=== PATIENT | male | born 1970 | race Caucasian/White ===

== ENCOUNTER 2018-07-10 16:01 | Inpatient (IN) | payer OTHER ==
[~2018-07-10] VITALS: Ht 177.8 cm; Wt 120.2 kg
[~2018-07-10 16:01] MED LIST changes: -ATOR10 PO; -Aspirin EC81 MG PO; -Azor 5-40 MG T1 EACH PO; -CHOL10002 PO; -INSULANPEN SC; -INVOKANA100 MG; -METF500C PO; -NAPR220 PO
[2018-07-10] MEDS ORDERED: INSULANPEN SC (18:56)
[2018-07-10] MEDS ORDERED: METF500C PO (18:57)
[2018-07-10] MEDS ORDERED: Azor 5-40 MG T1 EACH PO (18:57)
[2018-07-10] MEDS ORDERED: INVOKANA100 MG (18:58)
[2018-07-10] MEDS ORDERED: Aspirin EC81 MG PO (18:58)
[2018-07-10] MEDS ORDERED: ATOR10 PO (18:58)
[2018-07-10] MEDS ORDERED: CHOL10002 PO (20:03)
[2018-07-10] MEDS ORDERED: NAPR220 PO (20:03)
[2018-07-11 05:11] LABS: BASOPHILS ABSOLUTE AUTO 0.06 K/mm3 (0.00-0.23); BASOPHILS PERCENT AUTO 0 % (0-2); EOSINOPHILS ABSOLUTE AUTO 0.03 K/mm3 (0.00-0.68); EOSINOPHILS PERCENT AUTO 0 % (0-6); Hematocrit 42.1 % (37.0-53.0); IMMATURE GRAN ABSOLUTE AUTO 0.13 K/mm3 (0.00-0.10); IMMATURE GRAN PERCENT AUTO 1 % (0-1); LYMPHOCYTES ABSOLUTE AUTO 1.32 K/mm3 (0.84-5.20); LYMPHOCYTES PERCENT AUTO 6 % (21-46); MONOCYTES ABSOLUTE AUTO 1.62 K/mm3 (0.16-1.47); MONOCYTES PERCENT AUTO 7 % (4-13); Mean Corpuscular HGB 29.6 pg (26.0-34.0); Mean Corpuscular HGB Conc 33.3 g/dL (31.5-36.5); Mean Platelet Volume 10.9 fL (9.1-12.4); NEUTROPHILS ABSOLUTE AUTO 20.24 K/mm3 (1.96-9.15); NEUTROPHILS PERCENT AUTO 87 % (41-73); Platelet Count 305 K/mm3 (150-400); RDW Coefficient Variation 12.6 % (11.7-14.2); RDW Standard Deviation 41.1 fL (35.1-46.3); Red Blood Cell Count 4.73 M/mm3 (4.30-5.90)
[2018-07-11 05:38] LABS: Mean Corpuscular Volume 89 fL (80-100)
--- NOTE | 2018-07-11 06:26 | NUR ---
SUMMARY NO ACUTE CHANGES SINCE ADMISSION. PT IS A&O X4. INDEPENDENT IN THE ROOM AND CALLS FOR ASSISTANCE PRN. PT DENIES NAUSEA. PT REPORTS SMALL AMOUNT OF FLATUS. PAIN MEDICATED PER EMAR PRN. NS INFUSING PER ORDERS. VOIDING WNL. CALL LIGHT IN REACH. WCTM
--- NOTE | 2018-07-11 10:02 | NUR ---
Advance Directive Eduaction attempted. Upon entering the patients room, I found patient sitting in a chair and alert. I introduced myself and explained the purpose of the visit. I brought up the subject of the advance directive and talked about it's importance and the process of filing. Patient was too uncomfortable physically to stay focused on the subject and stated so. I left the advance directive with the patient and patient said that he and his would look through it.
--- NOTE | 2018-07-11 17:32 | NUR ---
T 100.8. PATIENT STATES PAIN HAS REMAINED THE SAME T/O SHIFT. IS WAS GIVEN EARLIER THIS AFTERNOON FOR ELEVATED TEMP, PATIENT USING. UP AD IVETT IN ROOM. ABLE TO SLEEP FOR AWHILE LATE THIS AFTERNOON. CONT TO MONITOR.
[2018-07-12 04:38] LABS: BASOPHILS ABSOLUTE AUTO 0.05 K/mm3 (0.00-0.23); BASOPHILS PERCENT AUTO 0 % (0-2); EOSINOPHILS ABSOLUTE AUTO 0.07 K/mm3 (0.00-0.68); EOSINOPHILS PERCENT AUTO 0 % (0-6); Hematocrit 41.7 % (37.0-53.0); Hemoglobin 13.8 g/dL (13.5-17.5); IMMATURE GRAN ABSOLUTE AUTO 0.18 K/mm3 (0.00-0.10); IMMATURE GRAN PERCENT AUTO 1 % (0-1); LYMPHOCYTES ABSOLUTE AUTO 1.35 K/mm3 (0.84-5.20); LYMPHOCYTES PERCENT AUTO 6 % (21-46); MONOCYTES PERCENT AUTO 8 % (4-13); Mean Corpuscular HGB 29.3 pg (26.0-34.0); Mean Corpuscular HGB Conc 33.1 g/dL (31.5-36.5); Mean Corpuscular Volume 89 fL (80-100); Mean Platelet Volume 10.7 fL (9.1-12.4); NEUTROPHILS PERCENT AUTO 84 % (41-73); Platelet Count 295 K/mm3 (150-400); RDW Coefficient Variation 12.6 % (11.7-14.2); RDW Standard Deviation 41.2 fL (35.1-46.3); Red Blood Cell Count 4.71 M/mm3 (4.30-5.90); White Blood Cell Count 21.45 K/mm3 (4.00-11.30)
[2018-07-12 04:57] LABS: Anion Gap 10 mmol/L (6-16); Blood Urea Nitrogen 10 mg/dL (8-24); Bun/Creatinine Ratio 12.5 (12.0-20.0); CO2, Blood 21 mmol/L (21-32); Calcium, Blood 8.6 mg/dL (8.5-10.1); Chloride, Blood 107 mmol/L (98-108); Glomerular Filtration Rate >60 (60-); Glucose, Blood 172 mg/dL (70-99); Potassium, Blood 3.8 mmol/L (3.5-5.5); Sodium, Blood 138 mmol/L (136-145)
--- NOTE | 2018-07-12 05:36 | NUR ---
STATES PAIN IS MUCH BETTER AFTER SWITING TO DILUDID. HAS DENIES ANY N/V. PT IS PASSING FLATUS AND HAVING BM. STATED THE FIRST BM WAS SOLID AND NOW THEY ARE LIQUID. PT REMAINS NPO, CONT IVF AND IV ABX. PT IS INDEPENDENT IN ROOM. CALL LIGHT IN REACH.
--- NOTE | 2018-07-12 18:33 | NUR ---
SHIFT SUMMARY PATIENT STATES PAIN CONTROLLED WITH DILAUDID. NO NAUSEA. UP TO SHOWER TODAY AND UP AD IVETT IN ROOM. STATES HE PLANS ON AMBULATING IN [place] THIS EVENING. AFEBRILE THIS SHIFT. NO ACUTE CHANGES. FAMILY IN TO SEE.
--- NOTE | 2018-07-13 06:33 | NUR ---
SUMMARY NO ACUTE CHANGES FROM ASSESSMENT. PT CONTINUES TO PASS FLATUS. REPORTS "YELLOW FLAKY STOOLS". PAIN MANAGED WITH IV DILAUDID. DENIES NAUSEA. AMBULATING IN ROOM INDEPENDENTLY. CALL LIGHT IN REACH
[2018-07-13 10:06] LABS: BASOPHILS ABSOLUTE AUTO 0.06 K/mm3 (0.00-0.23); BASOPHILS PERCENT AUTO 0 % (0-2); EOSINOPHILS ABSOLUTE AUTO 0.12 K/mm3 (0.00-0.68); EOSINOPHILS PERCENT AUTO 1 % (0-6); Hematocrit 40.6 % (37.0-53.0); Hemoglobin 13.6 g/dL (13.5-17.5); IMMATURE GRAN PERCENT AUTO 1 % (0-1); LYMPHOCYTES ABSOLUTE AUTO 1.28 K/mm3 (0.84-5.20); LYMPHOCYTES PERCENT AUTO 8 % (21-46); MONOCYTES ABSOLUTE AUTO 1.65 K/mm3 (0.16-1.47); MONOCYTES PERCENT AUTO 10 % (4-13); Mean Corpuscular HGB 29.7 pg (26.0-34.0); Mean Corpuscular HGB Conc 33.5 g/dL (31.5-36.5); Mean Corpuscular Volume 89 fL (80-100); Mean Platelet Volume 10.7 fL (9.1-12.4); NEUTROPHILS ABSOLUTE AUTO 13.63 K/mm3 (1.96-9.15); NEUTROPHILS PERCENT AUTO 81 % (41-73); Platelet Count 327 K/mm3 (150-400); RDW Coefficient Variation 12.6 % (11.7-14.2); Red Blood Cell Count 4.58 M/mm3 (4.30-5.90); White Blood Cell Count 16.84 K/mm3 (4.00-11.30)
[2018-07-13 10:18] LABS: Anion Gap 9 mmol/L (6-16); Blood Urea Nitrogen 12 mg/dL (8-24); Bun/Creatinine Ratio 15.6 (12.0-20.0); CO2, Blood 23 mmol/L (21-32); Calcium, Blood 8.8 mg/dL (8.5-10.1); Chloride, Blood 107 mmol/L (98-108); Creatinine, Blood 0.77 mg/dL (0.60-1.20); Glomerular Filtration Rate >60 (60-); Glucose, Blood 172 mg/dL (70-99); Potassium, Blood 3.9 mmol/L (3.5-5.5); Sodium, Blood 139 mmol/L (136-145)
--- NOTE | 2018-07-13 16:56 | NUR ---
SHIFT SUMMARY PT HAS DONE WELL THIS SHIFT. DENIES N/V, PAIN MANAGED WITH 1MG DILAUDID ABOUT EVERY 3 HOURSDIET ADVANCED TO FULL LIQUID, PT TOLERATED WELL. PT UP WALKING AROUND IN HALLWAY X'S 3, UP TO CHAIR.
[2018-07-14 09:56] LABS: BASOPHILS ABSOLUTE AUTO 0.04 K/mm3 (0.00-0.23); BASOPHILS PERCENT AUTO 0 % (0-2); EOSINOPHILS ABSOLUTE AUTO 0.12 K/mm3 (0.00-0.68); EOSINOPHILS PERCENT AUTO 1 % (0-6); Hematocrit 40.1 % (37.0-53.0); Hemoglobin 13.7 g/dL (13.5-17.5); IMMATURE GRAN ABSOLUTE AUTO 0.08 K/mm3 (0.00-0.10); IMMATURE GRAN PERCENT AUTO 1 % (0-1); LYMPHOCYTES ABSOLUTE AUTO 0.84 K/mm3 (0.84-5.20); LYMPHOCYTES PERCENT AUTO 7 % (21-46); MONOCYTES ABSOLUTE AUTO 1.09 K/mm3 (0.16-1.47); MONOCYTES PERCENT AUTO 9 % (4-13); Mean Corpuscular HGB 29.7 pg (26.0-34.0); Mean Corpuscular HGB Conc 34.2 g/dL (31.5-36.5); Mean Corpuscular Volume 87 fL (80-100); Mean Platelet Volume 10.6 fL (9.1-12.4); NEUTROPHILS ABSOLUTE AUTO 9.64 K/mm3 (1.96-9.15); NEUTROPHILS PERCENT AUTO 82 % (41-73); Platelet Count 353 K/mm3 (150-400); RDW Coefficient Variation 12.7 % (11.7-14.2); RDW Standard Deviation 40.1 fL (35.1-46.3); Red Blood Cell Count 4.62 M/mm3 (4.30-5.90); White Blood Cell Count 11.81 K/mm3 (4.00-11.30)
[2018-07-14 10:14] LABS: Anion Gap 7 mmol/L (6-16); Blood Urea Nitrogen 11 mg/dL (8-24); CO2, Blood 24 mmol/L (21-32); Calcium, Blood 8.5 mg/dL (8.5-10.1); Chloride, Blood 105 mmol/L (98-108); Creatinine, Blood 0.78 mg/dL (0.60-1.20); Glomerular Filtration Rate >60 (60-); Glucose, Blood 343 mg/dL (70-99); Potassium, Blood 3.8 mmol/L (3.5-5.5); Sodium, Blood 136 mmol/L (136-145)
--- NOTE | 2018-07-14 18:44 | NUR ---
SHIFT SUMMARY PT HAS DONE WELL THIS SHIFT. AMBULATING INDEPENDENTLY IN HALLWAYS, TOLERATING FULL LIQUIDS, ADVANCED TO REGULAR WITH NO N/V. SALINE LOCKED. PAIN MANAGED WITH 1MG IV DILAUDID, STARTED ON 10MG ROXICODONE THIS EVENING. PLAN IS TO DC HOME TOMORROW IF PT PAIN MANAGABLE ON PO PAIN MEDICATION.
--- NOTE | 2018-07-15 06:34 | NUR ---
SHIFT SUMMARY: PT CONTINUES TO BE ON BOWEL REST; DIET ADVANCED TO FULL LIQUIDS; PT DENIES N/V. PT DOES REPORT PAIN IN LLQ, RATES IT A 6 OUT 10, CRAMPING. PT PAIN ABLE TO BE MANAGED WITH PO PAIN MEDS; 10 MG OXY Q6H PRN. PT IS PASSING FLATUS AND LOOSE BM'S. UP INDEPENDENTLY IN RM; WALKS THE HALLS. BLOOD SUGARS Q6H; SEE LABS. ADMINISTERED INSULIN PER SS. PT TO GO HOME TODAY IF PAIN CONT TO BE WELL MANAGED WITH PO PAIN MEDS. WILL CONT TO MONITOR AND PROVIDE CARE UNTIL PRESUMED BY ONCOMING RN.
[2018-07-15] MEDS ORDERED: LEVFLO500 PO (16:13)
[2018-07-15] MEDS ORDERED: DOCU100 PO (16:13)
[2018-07-15] MEDS ORDERED: METR500 PO (16:14)
[2018-07-15] MEDS ORDERED: ROXICODONE5 MG PO (16:16)
--- NOTE | 2018-07-15 16:27 | NUR ---
DISCHARGE PT EXCITED FOR D/C. DISCUSSED NEW MEDICATIONS. PT AMBULATORY, TOLERATING DIET, PASSING GAS.
== END 2018-07-15 16:53 | disposition home or self-care (01) | DRG 392 ==
LOC: ER 16:01 → SURS 20:07
PROVIDERS: Family Medicine; ADMIT Hospitalist
DX: K57.20 Diverticulitis of large intestine with perforation and abscess without bleeding (principal); E11.9 Type 2 diabetes mellitus without complications; I10 Essential (primary) hypertension; E78.5 Hyperlipidemia, unspecified; Z79.84 Long term (current) use of oral hypoglycemic drugs; Z79.1 Long term (current) use of non-steroidal anti-inflammatories (NSAID); Z79.82 Long term (current) use of aspirin; Z79.4 Long term (current) use of insulin; Z79.899 Other long term (current) drug therapy
CPT/HCPCS: 36415; 74177; 80048; 82947; 83690; 85025; 96361-59; 96365-59; 96375-59; 99285-25; J1170; J1815; J1956; J2543; J3010; J7030; Q9967

== ENCOUNTER → 2018-07-10 | Outpatient (CLI) | payer OTHER ==
[~2018-07-10] MED LIST: ALBU90OI INH; ALLO300 PO; ATOR10 PO; Aspirin EC81 MG PO; Azor 5-40 MG T1 EACH PO; CHOL10002 PO; CIPR500 PO; DOXY100 PO; HYDACE5325 PO; INSULANPEN SC; INVOKANA100 MG; METF500C PO; METR500 PO; NAPR220 PO; PROM25 PO
[2018-07-10 15:01] LABS: BASOPHILS ABSOLUTE AUTO 0.07 K/mm3 (0.00-0.23); BASOPHILS PERCENT AUTO 0 % (0-2); EOSINOPHILS ABSOLUTE AUTO 0.05 K/mm3 (0.00-0.68); EOSINOPHILS PERCENT AUTO 0 % (0-6); Hematocrit 45.7 % (37.0-53.0); Hemoglobin 16.2 g/dL (13.5-17.5); IMMATURE GRAN PERCENT AUTO 0 % (0-1); LYMPHOCYTES ABSOLUTE AUTO 1.23 K/mm3 (0.84-5.20); LYMPHOCYTES PERCENT AUTO 5 % (21-46); MONOCYTES ABSOLUTE AUTO 1.91 K/mm3 (0.16-1.47); MONOCYTES PERCENT AUTO 8 % (4-13); Mean Corpuscular HGB 30.2 pg (26.0-34.0); Mean Corpuscular HGB Conc 35.4 g/dL (31.5-36.5); Mean Corpuscular Volume 85 fL (80-100); Mean Platelet Volume 10.7 fL (9.1-12.4); NEUTROPHILS ABSOLUTE AUTO 19.37 K/mm3 (1.96-9.15); NEUTROPHILS PERCENT AUTO 85 % (41-73); Platelet Count 358 K/mm3 (150-400); RDW Coefficient Variation 12.8 % (11.7-14.2); RDW Standard Deviation 39.4 fL (35.1-46.3); Red Blood Cell Count 5.36 M/mm3 (4.30-5.90); White Blood Cell Count 22.73 K/mm3 (4.00-11.30)
[2018-07-10 15:17] LABS: Alanine Aminotransfer (ALT/SGP 48 U/L (12-78); Albumin, Blood 4.3 g/dL (3.4-5.0); Albumin/Globulin Ratio 1.4 (0.8-1.8); Alk Phos 90 U/L (40-126); Anion Gap 16 mmol/L (6-16); Aspartate Aminotrans (AST/SGOT 24 U/L (12-37); Bilirubin, Total 0.5 mg/dL (0.1-1.0); Blood Urea Nitrogen 20 mg/dL (8-24); Bun/Creatinine Ratio 19.8 (12.0-20.0); CO2, Blood 20 mmol/L (21-32); Calcium, Blood 8.5 mg/dL (8.5-10.1); Chloride, Blood 102 mmol/L (98-108); Creatinine, Blood 1.01 mg/dL (0.60-1.20); Glomerular Filtration Rate >60 (60-); Glucose, Blood 207 mg/dL (70-99); Sodium, Blood 138 mmol/L (136-145); Total Protein, Blood 7.3 g/dL (6.4-8.2)
== END | disposition home or self-care (01) ==
LOC: LAB EV 14:57 → LAB SHORT 14:57
PROVIDERS: Family Medicine
DX: R10.0 Acute abdomen (principal)
CPT/HCPCS: 80053; 85025

== ENCOUNTER → 2018-10-01 | Outpatient (CLI) | payer OTHER ==
[~2018-10-01] MED LIST changes: +ATOR10 PO; +Aspirin EC81 MG PO; +Azor 5-40 MG T1 EACH PO; +CHOL10002 PO; +DOCU100 PO; +INSULANPEN SC; +INVOKANA100 MG; +LEVFLO500 PO; +METF500C PO; +NAPR220 PO; +ROXICODONE5 MG PO
== END | disposition home or self-care (01) ==
LOC: LAB SHORT 12:22 → LAB 12:22
DX: N32.1 Vesicointestinal fistula (principal)
CPT/HCPCS: 87077; 87086; 87186

== ENCOUNTER 2018-10-16 15:34 | Inpatient (IN) | payer OTHER ==
[2018-10-16] MEDS ORDERED: JARDIANCE25 MG PO (17:21)
[2018-10-16] MEDS ORDERED: [UNRECOGNIZED DRUG - CODE] SC (17:36)
[2018-10-16] MEDS ORDERED: [UNRECOGNIZED DRUG - CODE] PO (17:38)
[2018-10-16] MEDS ORDERED: [UNRECOGNIZED DRUG - CODE] PO (17:39)
[2018-10-16 18:06] LABS: BASOPHILS ABSOLUTE AUTO 0.08 K/mm3 (0.00-0.23); BASOPHILS PERCENT AUTO 1 % (0-2); EOSINOPHILS ABSOLUTE AUTO 0.22 K/mm3 (0.00-0.68); EOSINOPHILS PERCENT AUTO 2 % (0-6); Hematocrit 47.4 % (37.0-53.0); Hemoglobin 15.8 g/dL (13.5-17.5); IMMATURE GRAN ABSOLUTE AUTO 0.03 K/mm3 (0.00-0.10); IMMATURE GRAN PERCENT AUTO 0 % (0-1); LYMPHOCYTES PERCENT AUTO 15 % (21-46); MONOCYTES ABSOLUTE AUTO 1.49 K/mm3 (0.16-1.47); MONOCYTES PERCENT AUTO 10 % (4-13); Mean Corpuscular HGB 28.9 pg (26.0-34.0); Mean Corpuscular HGB Conc 33.3 g/dL (31.5-36.5); Mean Corpuscular Volume 87 fL (80-100); Mean Platelet Volume 10.5 fL (9.1-12.4); NEUTROPHILS PERCENT AUTO 72 % (41-73); Platelet Count 377 K/mm3 (150-400); RDW Coefficient Variation 13.2 % (11.7-14.2); RDW Standard Deviation 41.9 fL (35.1-46.3); Red Blood Cell Count 5.46 M/mm3 (4.30-5.90); White Blood Cell Count 14.52 K/mm3 (4.00-11.30)
[2018-10-16 18:37] LABS: Alanine Aminotransfer (ALT/SGP 33 U/L (12-78); Albumin, Blood 4.2 g/dL (3.4-5.0); Albumin/Globulin Ratio 1.1 (0.8-1.8); Alk Phos 99 U/L (50-136); Anion Gap 11 mmol/L (6-16); Aspartate Aminotrans (AST/SGOT 16 U/L (12-37); Bilirubin, Total 0.4 mg/dL (0.1-1.0); Blood Urea Nitrogen 13 mg/dL (8-24); Bun/Creatinine Ratio 15.2 (12.0-20.0); CO2, Blood 24 mmol/L (21-32); Calcium, Blood 9.1 mg/dL (8.5-10.1); Chloride, Blood 107 mmol/L (98-108); Creatinine, Blood 0.86 mg/dL (0.60-1.20); Globulin, Blood 3.7 g/dL (2.2-4.0); Glomerular Filtration Rate >60 (60-); Glucose, Blood 108 mg/dL (70-99); Sodium, Blood 142 mmol/L (136-145); Total Protein, Blood 7.9 g/dL (6.4-8.2)
--- NOTE | 2018-10-16 19:04 | NUR ---
SUMMARY PT DIRECT ADMIT FOR DR GONZALEZ THIS EVENING. A&OX4. INDEPENDENT. IV FLUIDS AND ABX RUNNING PER ORDERS. MEDICATED PER ORDERS W/TYLENOL FOR 5/10 ABDOMINAL PAIN. PT EATING DINNER. CALL LIGHT IN REACH.
[2018-10-17 05:19] LABS: International Normalized Ratio 0.96; Prothrombin Time Results 10.2 Sec (9.7-11.5)
[2018-10-17 05:30] LABS: Anion Gap 8 mmol/L (6-16); Blood Urea Nitrogen 13 mg/dL (8-24); Bun/Creatinine Ratio 15.2 (12.0-20.0); CO2, Blood 27 mmol/L (21-32); Calcium, Blood 8.4 mg/dL (8.5-10.1); Chloride, Blood 108 mmol/L (98-108); Creatinine, Blood 0.86 mg/dL (0.60-1.20); Glomerular Filtration Rate >60 (60-); Glucose, Blood 104 mg/dL (70-99); Potassium, Blood 3.9 mmol/L (3.5-5.5); Sodium, Blood 143 mmol/L (136-145)
--- NOTE | 2018-10-17 07:22 | NUR ---
SUMMARY PT WITH MINIMAL DISCOMFORT TONIGHT.NPO PENDING BEING SEEN BY DR HATFIELD. DR HATFIELD CURRENTLY IN HOUSE AND NOTIFIED OF NEED TO SEE PT.
--- NOTE | 2018-10-17 08:00 | NUR ---
DR GONZALEZ IN TO SEE PT.
--- NOTE | 2018-10-17 13:44 | NUR ---
DR HATFIELD IN TO SEE PT.
--- NOTE | 2018-10-17 16:23 | NUR ---
DR HATFIELD IN TO SEE PT.
--- NOTE | 2018-10-17 17:42 | NUR ---
SUMMARY NO ACUTE CHANGES DURING SHIFT. PT DID NOT REQUIRE COVERAGE FOR CBG. ADVANCED TO ADA DIET FOR DINNER. TOLERATED WELL. INDEPENDENT. IV INFUSING W/O DIFFICULTY. CALL LIGHT IN REACH.
--- NOTE | 2018-10-17 18:41 | NUR ---
BM PT REPORTED HAD NORMAL BM THIS AM BUT THIS EVENING HAD TWO LOOSE BMS.
--- NOTE | 2018-10-18 06:00 | NUR ---
SHIFT SUMMARY LYING IN SEMI FOWLERFS WITH EYES CLOSED. RESTED WELL, PAIN MANAGED. DENIES FURTHER NEEDS OR WANTS AT THIS TIME. SAFETY MEASURES IN PLACE. WILL GIVE HAND OFF TO ONCOMING SHIFT USING SBAR.
--- NOTE | 2018-10-18 07:40 | NUR ---
dr hagan to round on pt. pt states no pain at this time, up in room, a/0 x 4, independant, call light within reach.
[2018-10-18] MEDS ORDERED: Augmentin 875-1 EACH PO (13:56)
--- NOTE | 2018-10-18 15:00 | NUR ---
provided pt with discharge instructions, printed materials, removed peripheral IV wnl, called prescription to [facility] pharmacy. pt wanted to walk to awaiting vehicle with his belongings.
== END 2018-10-18 14:15 | disposition home or self-care (01) | DRG 699 ==
LOC: SURS 15:34
PROVIDERS: ADMIT Family Medicine
DX: N32.1 Vesicointestinal fistula (principal); K57.20 Diverticulitis of large intestine with perforation and abscess without bleeding; I10 Essential (primary) hypertension; E78.5 Hyperlipidemia, unspecified; F17.228 Nicotine dependence, chewing tobacco, with other nicotine-induced disorders; Z79.82 Long term (current) use of aspirin; Z98.52 Vasectomy status; E11.9 Type 2 diabetes mellitus without complications; Z79.4 Long term (current) use of insulin; B96.20 Unspecified Escherichia coli [E. coli] as the cause of diseases classified elsewhere
CPT/HCPCS: 36415; 80048; 80053; 82947; 85025; 85610; A9270; J0696; J1650; J3480

== ENCOUNTER 2018-10-21 09:48 | Inpatient (IN) | payer OTHER ==
[~2018-10-21] VITALS: Wt 113.6 kg
[~2018-10-21 09:48] MED LIST changes: +Augmentin 875-1 EACH PO; +JARDIANCE25 MG PO; +[UNRECOGNIZED DRUG - CODE] PO; +[UNRECOGNIZED DRUG - CODE] PO; +[UNRECOGNIZED DRUG - CODE] SC
--- NOTE | 2018-10-22 09:47 | NUR ---
History, Chart, Medications and Allergies reviewed before start of procedure. Lungs clear T/O to Auscultation.
--- NOTE | 2018-10-22 18:00 | NUR ---
pt arrived to room 233 from pacu via bed pt is s/p lap sig colectomy pt has 4 steri strips to abd with gauze and balwinder drain with sero/sang drainage full emptied 90 ml pt also has tranverse provena dressing lower abd pt has bt's no nausea ok to have ice chips henley cath draining dk yellow urine to keep in place for 5 days not to be removed pt has a epidural pt has small amt of bleeding to epidural site discussed with kathrin pacu nurse she stated that when pt arrived he did not have any blood under the dressing it is a scant amt will monitor dr lopez is in or she will notify pt reports pain 3/10 more numbness noted to the r leg but can move it
--- NOTE | 2018-10-22 19:05 | NUR ---
THALIA CARR TALKED WITH DR PFEIFFER STATED THAT SCANT AMT OF BLEEDING AT EPIDURAL SITE IS NORMAL
[2018-10-23 05:00] LABS: BASOPHILS ABSOLUTE AUTO 0.03 K/mm3 (0.00-0.23); BASOPHILS PERCENT AUTO 0 % (0-2); EOSINOPHILS ABSOLUTE AUTO 0.01 K/mm3 (0.00-0.68); EOSINOPHILS PERCENT AUTO 0 % (0-6); Hematocrit 42.9 % (37.0-53.0); Hemoglobin 14.3 g/dL (13.5-17.5); IMMATURE GRAN ABSOLUTE AUTO 0.07 K/mm3 (0.00-0.10); IMMATURE GRAN PERCENT AUTO 0 % (0-1); LYMPHOCYTES ABSOLUTE AUTO 1.39 K/mm3 (0.84-5.20); LYMPHOCYTES PERCENT AUTO 8 % (21-46); MONOCYTES ABSOLUTE AUTO 1.68 K/mm3 (0.16-1.47); MONOCYTES PERCENT AUTO 9 % (4-13); Mean Corpuscular HGB 28.4 pg (26.0-34.0); Mean Corpuscular HGB Conc 33.3 g/dL (31.5-36.5); Mean Corpuscular Volume 85 fL (80-100); Mean Platelet Volume 10.6 fL (9.1-12.4); NEUTROPHILS ABSOLUTE AUTO 14.89 K/mm3 (1.96-9.15); NEUTROPHILS PERCENT AUTO 82 % (41-73); Platelet Count 317 K/mm3 (150-400); RDW Coefficient Variation 13.1 % (11.7-14.2); RDW Standard Deviation 40.5 fL (35.1-46.3); Red Blood Cell Count 5.03 M/mm3 (4.30-5.90); White Blood Cell Count 18.07 K/mm3 (4.00-11.30)
[2018-10-23 05:38] LABS: Anion Gap 8 mmol/L (6-16); Blood Urea Nitrogen 15 mg/dL (8-24); Bun/Creatinine Ratio 18.2 (12.0-20.0); CO2, Blood 24 mmol/L (21-32); Calcium, Blood 8.5 mg/dL (8.5-10.1); Chloride, Blood 108 mmol/L (98-108); Creatinine, Blood 0.82 mg/dL (0.60-1.20); Glomerular Filtration Rate >60 (60-); Glucose, Blood 126 mg/dL (70-99); Sodium, Blood 140 mmol/L (136-145)
--- NOTE | 2018-10-23 06:12 | NUR ---
SUMMARY NO ACUTE CHANGES THROUGH THE NIGHT. PT IS TOLERATING SIPS W/ICE CHIPS. NO NAUSEA. DENIES PASSING FLATUS. EPIDURAL TITRATED UP TO 10 FROM 8. PAIN TOLERABLE AT A 4 THIS AM. MINE SHIFTER IN TO ASSESS EPIDURAL THIS AM. BERMAN REMAINS PATENT, DRAINING CLEAR JOSE URINE. PROVENA WOUND VAC IN PLACE, SUCTION INTACT. KELLY INTACT, SS FLUID NOTED, BULB COMPRESSED. DRSG'S C/D/I. CALL LIGHT IN REACH, RENNY
--- NOTE | 2018-10-23 17:14 | NUR ---
PT HAS BEEN STABLE THIS SHIFT. PT UP TO CHAIR MOST OF THE DAY, MIN ASSIST OOB. CONT TO HAVE NUMBNESS/TINGLING IN RIGHT LEG. PAIN TOLERABLE WITH EPIDERAL. SITE WNL. BERMAN DRAINING WELL, JOSE URINE. KELLY WITH 20CC OUT. PROVENA INTACT. IVF RATE DECREASED TO 50 AND PT STARTED ON SIPS OF CLEARS, TOLE WELL. NO REPORTED FLATUS YET. CBG'S REMAIN STABLE. PT USING SPIROMETRY. PAS TO BLE. USES CALL LIGHT APPROPRIATELY NEEDED.
--- NOTE | 2018-10-24 06:24 | NUR ---
POD 2 S/P COLECTOMY. PT VSS T/O NIGHT. DRESSINGS CDI; SCANT DRNG FRM KELLY. EPIDURAL RATE INC TO 12 ML/HR W/BETTER RELIEF. PT REP NO CHANGE IN N/T TO RLE. PT HARSHIL CLEARS, NO C/O N/V, REP +FLATUS. BERMAN PATANTHELEN YELLOW URINE. PT USING CALL LIGHT FOR ASSISTANCE, WILL CONT TO MONITOR UNTIL REP GIVEN TO ONCOMING RN.
--- NOTE | 2018-10-24 17:42 | NUR ---
PT HAS BEEN STABLE THIS SHIFT. PT PAIN TOLERABLE T/O SHIFT. PLAN TO DC EPIDERAL IN THE AM. LOVENOX DC'D PER DOCTOR. PT HAS AMBULATED HALLWAY X3 AND SAT IN CHAIR MOST OF THE DAY. PT PASSING FLATUS AND ATTEMPTED BM WITH NO SUCCESS. HARSHIL CLEARS. PT ABLE TO HAVE ENSURE VANILLA OR CHOCOLATE WELL. NO NAUSEA. KELLY WITH 10CC OUT. BERMAN DRAINING WELL. PROVENA CDI.
[2018-10-25 04:25] LABS: BASOPHILS ABSOLUTE AUTO 0.07 K/mm3 (0.00-0.23); BASOPHILS PERCENT AUTO 1 % (0-2); EOSINOPHILS ABSOLUTE AUTO 0.34 K/mm3 (0.00-0.68); EOSINOPHILS PERCENT AUTO 2 % (0-6); Hematocrit 41.9 % (37.0-53.0); Hemoglobin 14.1 g/dL (13.5-17.5); IMMATURE GRAN ABSOLUTE AUTO 0.05 K/mm3 (0.00-0.10); IMMATURE GRAN PERCENT AUTO 0 % (0-1); LYMPHOCYTES ABSOLUTE AUTO 2.13 K/mm3 (0.84-5.20); LYMPHOCYTES PERCENT AUTO 14 % (21-46); MONOCYTES ABSOLUTE AUTO 1.78 K/mm3 (0.16-1.47); MONOCYTES PERCENT AUTO 12 % (4-13); Mean Corpuscular HGB 29.1 pg (26.0-34.0); Mean Corpuscular HGB Conc 33.7 g/dL (31.5-36.5); Mean Corpuscular Volume 86 fL (80-100); Mean Platelet Volume 10.3 fL (9.1-12.4); NEUTROPHILS ABSOLUTE AUTO 10.62 K/mm3 (1.96-9.15); NEUTROPHILS PERCENT AUTO 71 % (41-73); Platelet Count 295 K/mm3 (150-400); RDW Coefficient Variation 13.1 % (11.7-14.2); Red Blood Cell Count 4.85 M/mm3 (4.30-5.90); White Blood Cell Count 14.99 K/mm3 (4.00-11.30)
[2018-10-25 04:41] LABS: Anion Gap 8 mmol/L (6-16); Blood Urea Nitrogen 9 mg/dL (8-24); Bun/Creatinine Ratio 12.3 (12.0-20.0); CO2, Blood 26 mmol/L (21-32); Calcium, Blood 8.6 mg/dL (8.5-10.1); Chloride, Blood 107 mmol/L (98-108); Creatinine, Blood 0.73 mg/dL (0.60-1.20); Glomerular Filtration Rate >60 (60-); Glucose, Blood 106 mg/dL (70-99); Potassium, Blood 3.7 mmol/L (3.5-5.5); Sodium, Blood 141 mmol/L (136-145)
--- NOTE | 2018-10-25 06:51 | NUR ---
SUMMARY: PT IS POD3 SIGMOID FISTULA REPAIR. NO ACUTE CHANGE TONIGHT, VSS, EPIDURAL CHECKS WNL. PT HAD 3 SMALL LIQUID BM'S TONIGHT. ABLE TO AMBULATE TO BATHROOM. PT REPORTS EPIDURAL MANAGING PAIN WELL, TYLENOL GIVEN PER EMAR. SURGICAL SITE WNL, MINIMAL OUT OF KELLY DRAIN, DID NOT EMPTY TONIGHT. NO CONCERNS AT THIS TIME.
--- NOTE | 2018-10-25 16:40 | NUR ---
SHIFT SUMMARY PT POD [address] PL[address], FOAM COMPRESSED-NO DRAINAGE IN CANISTER. KELLY WITH SCANT AMT OF SS FLUID OUT THIS SHIFT. PT REPORTS FLATUS AND SMALL LIQUID BM X'S 2. PAIN MANAGED WITH SCHEDUALED NEURONTIN AND TYLENOL. ADVANCED TO FULL LIQUID DIET, TOLERATING WITH NO N/V. AMBULATING INDEPENDENTLY IN ROOM. BERMAN TO STAY IN PLACE PENDING CYSTOGRAM SCHEDUALED FOR SUNDAY PER DR HATFIELD.
--- NOTE | 2018-10-26 08:08 | NUR ---
SUMMARY PT WTIH EPIDURAL OUT YESTERDAY. BERMAN PATENT AND LEFT IN PER WISHES OF DR HATFIELD.RELATED TO FISTULA. EPIDURAL DC SITE CLEAR. PT AMBULATED WITH ASSIST IN ROOM.
--- NOTE | 2018-10-26 12:35 | NUR ---
pt ynes reg diet po pain meds given sitting up in chair
--- NOTE | 2018-10-26 13:09 | NUR ---
REC'D REPORT FROM LISA VILLAVICENCIO.
--- NOTE | 2018-10-26 17:22 | NUR ---
SUMMARY NO ACUTE CHANGES SINCE ASSUMING CARE OF PT. PT STATES PAIN TOLERABLE AT THIS TIME. INDEPENDENT. AMBULATED IN HALLS W/FWW. BERMAN CATH DRAINING YELLOW URINE. USES CALL LIGHT APPROPRIATELY.
--- NOTE | 2018-10-27 06:56 | NUR ---
SUMMARY NO ACUTE CHANGES TONIGHT.UP IN HALLS W/A. SLEPT QUIETLY.
--- NOTE | 2018-10-27 17:09 | NUR ---
SUMMARY NO ACUTE CHANGES T/O SHIFT. PT PASSING FLATUS BUT DID NOT HAVE BM THIS SHIFT. TOLERATING REGULAR DIET. INDEPENDENT. WENT OUTSIDE IN WC W/SPOUSE. PAIN WELL CONTROLLED PER ORDERS. USES CALL LIGHT APPROPRIATELY.
--- NOTE | 2018-10-28 07:36 | NUR ---
SUMMARY NO ACUTE CHANGES NOTED THROUGH THE NIGHT. PAIN MANAGED PER EMAR. PT IS PASSING FLATUS. TOLERATING PO INTAKE. INDEPENDENT IN THE ROOM. CALL LIGHT IN ROOM
[2018-10-28] MEDS ORDERED: Percocet 5-3251 EACH PO (12:17)
[2018-10-28] MEDS ORDERED: GAVILAX17 GM PO (12:23)
--- NOTE | 2018-10-28 12:45 | NUR ---
DISCHARGE PT AND SPOUSE EDUCATED ON AND RECEIVED PRINTED DC INSTRUCTIONS. BOTH VERB AN UNDERSTANDING. IV DC'D. CULLEN DC'D AND KELLY REMOVED BY DR. HATFIELD. DR. HATFIELD VERBALIZED THAT PT DID NOT HAVE TO VOID BEFORE GOING HOME. HARD RX FOR PERCOCET GIVEN TO PT. PT GATHERING ALL PERSONAL BELONGINGS.
--- NOTE | 2018-10-28 14:01 | NUR ---
EPIDURAL WASTE 125ML FENTANYL EPIDURAL WASTED-VERIFIED WITH DC SANTOS AT 1401.
== END 2018-10-28 12:52 | disposition home or self-care (01) | DRG 330 ==
LOC: SURS 10-22 08:45 → PRE IP 10-22 10:30 → SURS 10-22 18:00
PROVIDERS: ADMIT Surgery
PROC: 0WUF47Z Supplement Abdominal Wall with Autologous Tissue Substitute, Percutaneous Endoscopic Approach (ICD-10-PCS; 2018-10-22)
PROC: 0DTN4ZZ Resection of Sigmoid Colon, Percutaneous Endoscopic Approach (ICD-10-PCS; principal; 2018-10-22 10:30)
PROC: 0DQN0ZZ Repair Sigmoid Colon, Open Approach (ICD-10-PCS; 2018-10-22 10:30)
DX: K57.32 Diverticulitis of large intestine without perforation or abscess without bleeding (principal); N32.1 Vesicointestinal fistula; I10 Essential (primary) hypertension; E11.9 Type 2 diabetes mellitus without complications; Z79.4 Long term (current) use of insulin
CPT/HCPCS: 36415; 51610; 74450; 80048; 82947; 85025; 86850; 86900; 86901; 88307; 93005; 93010; A9270; J0690; J1100; J1650; J1815; J1885; J2250; J2370; J2405; J2704; J2710; J3010; J7030; J7050; J7120; Q9967

== ENCOUNTER → 2019-11-22 | Outpatient (CLI) | payer OTHER ==
[~2019-11-22] MED LIST changes: +GAVILAX17 GM PO; +Percocet 5-3251 EACH PO
== END | disposition home or self-care (01) ==
LOC: LAB SHORT 11:41 → LAB EV 11:41
DX: B34.9 Viral infection, unspecified (principal); Z20.828 Contact with and (suspected) exposure to other viral communicable diseases
CPT/HCPCS: U0003

== ENCOUNTER → 2021-08-11 | Outpatient (CLI) | payer OTHER | LOC: LAB 07:30 → LAB SHORT 07:30 | DX: D17.0 Benign lipomatous neoplasm of skin and subcutaneous tissue of head, face and neck (principal) | CPT/HCPCS: 88304 ==

== ENCOUNTER → 2021-09-14 | Outpatient (CLI) | payer OTHER | END | disposition home or self-care (01) | LOC: LAB SHORT 16:10 | DX: L05.01 Pilonidal cyst with abscess (principal) | CPT/HCPCS: 87070; 87075; 87076; 87077; 87147; 87186; 87205 ==

== ENCOUNTER → 2022-03-16 | Outpatient (CLI) | payer OTHER ==
[~2022-03-16] MED LIST changes: +COLCHICINE0.6 MG PO; +HYDR1TAB94 PO
== END | disposition home or self-care (01) ==
LOC: LAB 19:23 → LAB SHORT 19:23
DX: M25.561 Pain in right knee (principal)
CPT/HCPCS: 84550

== ENCOUNTER 2022-03-17 07:40 | Emergency (ER) | payer OTHER ==
[~2022-03-17] VITALS: Ht 177.8 cm; Wt 120.2 kg
[~2022-03-17 07:40] MED LIST changes: -COLCHICINE0.6 MG PO; -HYDR1TAB94 PO
[2022-03-17] MEDS ORDERED: COLCHICINE0.6 MG PO (08:56)
[2022-03-17] MEDS ORDERED: HYDR1TAB94 PO ×2 (08:56→09:18)
== END 2022-03-17 09:33 | disposition home or self-care (01) ==
LOC: ER 07:40
DX: M25.561 Pain in right knee (principal); I10 Essential (primary) hypertension; M10.9 Gout, unspecified; Z79.899 Other long term (current) drug therapy; Z79.4 Long term (current) use of insulin; Z79.82 Long term (current) use of aspirin
CPT/HCPCS: A9270

== ENCOUNTER 2025-02-03 07:14 | Day surgery (SDC) | payer OTHER ==
[~2025-02-03] VITALS: Ht 177.8 cm; Wt 117.5 kg
[2025-02-03] VITALS (9 sets, daily range): BP systolic 117–136; BP diastolic 74–92
[~2025-02-03 07:14] MED LIST changes: +ASPI81CH PO; +ATOR40TA PO; +AZMIRO200 MG/1 M IM; +COLCHICINE0.6 MG PO; +FARXIGA10 MG PO; +HYDR1TAB94 PO; +INSULANI SC; +MELO7.5 PO; +METO10 PO; +METO50ER PO; +NITR.4SL SL; +NOVOLOG100 UNIT/3 SQ; +PROM12.5S PR
[2025-02-03] MEDS ORDERED: Heparin Sodium 1000 Units/ML 10ML MDV ONE ×2 (07:42→09:08)
[2025-02-03] MEDS ORDERED: Verapamil HCL 2.5 MG/ML 2ML Injection ONE (07:42)
[2025-02-03] MEDS ORDERED: NS 250 ML IV ONE (07:42)
[2025-02-03] MEDS ORDERED: NS 1,000 ML IV ONE ×2 (07:42→08:11)
[2025-02-03] MEDS ORDERED: Nitroglycerin 2 MG/20 ML BTL ONE (07:43)
[2025-02-03] MEDS ORDERED: INSULANI SC (07:47)
[2025-02-03] MEDS ORDERED: Midazolam HCl 1MG / ML 2ML Vial ONE (08:27)
[2025-02-03] MEDS ORDERED: FentaNYL Citrate 50 MCG/ML 2 ML Injection ONE (08:27)
--- NOTE | 2025-02-03 10:20 | NUR ---
DR PRIDE AT BEDSIDE TO DISCUSS PROCEDURE AND FUTURE PLAN OF CARE. RADIAL SITE SOFT AND NON-TENDER PER PT. NO BLEEDING/HEMATOMA NOTED. PT AMBULATED TO RESTROOM W/O ASSISTANCE.
--- NOTE | 2025-02-03 10:55 | NUR ---
2cc removed from tr band. site soft and non-tender per pt. no bleeding/hematoma noted.
--- NOTE | 2025-02-03 11:19 | NUR ---
tr band fully deflated. no bleeding/hematoma notes. site soft and non-tender per pt.
--- NOTE | 2025-02-03 11:56 | NUR ---
pt given dc instructions and verbalized understanding. iv out. pt chnaged. radial site soft and non-tender per pt. no bleeding/hematoma noted. cloth dot, arm board, and sling applied. pt refused wc. pt ambulated to lby w/ . to drive pt home.
== END 2025-02-03 12:20 | disposition home or self-care (01) ==
LOC: MHTC 07:14
DX: I25.10 Atherosclerotic heart disease of native coronary artery without angina pectoris (principal); E78.5 Hyperlipidemia, unspecified; E11.9 Type 2 diabetes mellitus without complications; Z79.84 Long term (current) use of oral hypoglycemic drugs; Z79.4 Long term (current) use of insulin; Z79.899 Other long term (current) drug therapy
CPT/HCPCS: 76937; 85347; 93458; 93571; 93572; 99152; 99153; C1769; C1887; C1894; J1644; J2250; J3010; J7030; J7050; Q9967

== ENCOUNTER 2025-02-18 03:10 | Emergency (ER) | payer OTHER ==
[~2025-02-18] VITALS: Ht 177.8 cm; Wt 113.4 kg
[2025-02-18 03:28] LABS: BASOPHILS ABSOLUTE AUTO 0.08 K/mm3 (0.00-0.23); BASOPHILS PERCENT AUTO 1 % (0-2); EOSINOPHILS ABSOLUTE AUTO 0.23 K/mm3 (0.00-0.68); EOSINOPHILS PERCENT AUTO 2 % (0-6); Hematocrit 50.1 % (37.0-53.0); Hemoglobin 17.3 g/dL (13.5-17.5); IMMATURE GRAN ABSOLUTE AUTO 0.02 K/mm3 (0.00-0.10); IMMATURE GRAN PERCENT AUTO 0 % (0-1); LYMPHOCYTES ABSOLUTE AUTO 2.78 K/mm3 (0.84-5.20); LYMPHOCYTES PERCENT AUTO 28 % (21-46); MONOCYTES ABSOLUTE AUTO 1.32 K/mm3 (0.16-1.47); MONOCYTES PERCENT AUTO 13 % (4-13); Mean Corpuscular HGB Conc 34.5 g/dL (31.5-36.5); Mean Corpuscular Volume 84 fL (80-100); NEUTROPHILS ABSOLUTE AUTO 5.40 K/mm3 (1.96-9.15); NEUTROPHILS PERCENT AUTO 55 % (41-73); NRBC ABSOLUTE 0.00 K/mm3 (0.00-0.02); NRBC Auto 0.0 /100 WBC (0.0-0.2); Platelet Count 334 K/mm3 (150-400); RDW Coefficient Variation 12.3 % (11.7-14.2); RDW Standard Deviation 37.7 fL (35.1-46.3)
[2025-02-18 03:48] LABS: Alanine Aminotransfer (ALT/SGP 38.0 U/L (12-78); Albumin, Blood 4.0 g/dL (3.4-5.0); Albumin/Globulin Ratio 1.2 (0.8-1.8); Anion Gap 7.0 mmol/L (3-11); Aspartate Aminotrans (AST/SGOT 21.0 U/L (12-37); Bilirubin, Total 0.3 mg/dL (0.1-1.0); Blood Urea Nitrogen 24.0 mg/dL (8-24); CO2, Blood 28.0 mmol/L (21-32); Calcium, Blood 9.1 mg/dL (8.5-10.1); Chloride, Blood 107.0 mmol/L (98-108); Creatinine, Blood 0.93 mg/dL (0.60-1.20); Globulin, Blood 3.4 g/dL (2.2-4.0); Glucose, Blood 159.0 mg/dL (70-99); Potassium, Blood 4.2 mmol/L (3.5-5.5); Sodium, Blood 138.0 mmol/L (136-145); Total Protein, Blood 7.4 g/dL (6.4-8.2)
[2025-02-18 07:00] VITALS: BP 123/88
== END 2025-02-18 07:05 | disposition home or self-care (01) ==
LOC: ER 03:10
PROVIDERS: Emergency Medicine
DX: R07.2 Precordial pain (principal); I10 Essential (primary) hypertension; E11.9 Type 2 diabetes mellitus without complications; Z79.4 Long term (current) use of insulin; Z79.899 Other long term (current) drug therapy; Z59.89 Other problems related to housing and economic circumstances
CPT/HCPCS: 71046; 80053; 83690; 84484; 85025; 99285-25; A9270